=== PATIENT | male | born 1970 | race Caucasian/White ===

== ENCOUNTER 2021-08-04 07:48 | Inpatient (IN) | payer OTHER ==
[~2021-08-04] VITALS: Ht 190.5 cm; Wt 137.9 kg
--- NOTE | ~2021-08-04 | EMS ---
[address] [address] EMS Patient Care Report Name: COREY SANCHEZ Room #: 349-I ADM IN M.R.#: [id number] Admission: 08/04/21 Attend Phys: Mariaelena Colby MD Discharge: Date of : 70 Report #: [id number] THIS REPORT FOR: //name// Report Transmitted: 08/17/2021 00:22 EMS Care Summary [place], [place]/[facility] Incident [id number] @ 08/04/2021 07:14 Incident Location [address] [place] [address] Patient COREY SANCHEZ Male, 51 Years 1970 Patient Address [id number] [place] [id number] Patient History Diabetes,Gastro-Esophageal Reflux Disease (GERD),Depression,Anxiety,Anemia,Novel Coronavirus (COVID-19), Patient Allergies Morphine, Patient Medications Albuterol, Zofran, Norvasc, Prilosec, Insulin, Gabapentin, Hydralazine, Potassium, Sodium ferric gluconate, Lasix, Iron, Labetalol, Chief Complaint RESPIRATORY DISTRESS Disposition Transported No Lights/[place] Dispatch Reason Breathing Problem Transported To [facility] Narrative SCENE: ON ARRIVAL T FOUND LYING IN BED IN ROOM AT ADDRESS PROVIDED. PT IS ON [address] [address] EMS Patient Care Report Name: COREY SANCHEZ Room #: 349-I ADM IN .R.#: [id number] Admission: 08/04/21 Attend Phys: Mariaelena Colby MD Discharge: Date of : 70 Report #: [id number] 5LPM VIA NC PER NORMAL. STAFF REPORTS PT IS COVID POSITIVE AND SHE HAS BEEN UNABLE TO KEEP PT O2 SATURATION ABOVE 80 PERCENT. PT IS C/O SOB. PT LEFT FOOT AMPUTEE. PT DENIES ALL OTHER COMPLAINTS. PT SLID TO EMS STRETCHER. AMBULANCE: PT HAS CONGESTION AND WHEEZING IN THE LOWER SPANGLER. PT PLACED ON DUONEB TREATMENT EN ROUTE. PT REPORTS MILD RELIEF UPON ARRIVAL TO ED. NO OTHER CHANGES Initial Vitals @07:26P: 114,R: 18,BP: 148/74,GCS: 15,Revised Trauma: 12, @07:56P: 100,R: 18,Pain: 0/10,GCS: 15,Revised Trauma: 12, Assessments @07:27MENTAL:Person Oriented,Place Oriented,Time Oriented,Hallucinations,Event Oriented,SKIN:HEENT:Head/Face: No Abnormalities,Neck/Airway: No Abnormalities,LUNG SOUNDS:General: No Abnormalities,ABDOMEN:General: No Abnormalities,PELVIS//GI:No Abnormalities,EXTREMITIES:Left Leg: Other,Left Arm: No Abnormalities,Right Arm: No Abnormalities,Right Leg: No Abnormalities,PULSE:NEURO:No Abnormalities,@07:40MENTAL:Hallucinations,SKIN:HEENT:Head/Face: No Abnormalities,Eyes: No Abnormalities,Neck/Airway: No Abnormalities,LUNG SOUNDS:General: No Abnormalities,Left Upper: No Abnormalities,Right Upper: No Abnormalities,Left Lower: No Abnormalities,Right Lower: No Abnormalities,ABDOMEN:General: No Abnormalities,Left Upper: No Abnormalities,Right Upper: No Abnormalities,Left Lower: No Abnormalities,Right Lower: No Abnormalities,PELVIS//GI:No Abnormalities,EXTREMITIES:Left Leg: Other,Left Arm: No Abnormalities,Right Arm: No Abnormalities,Right Leg: No Abnormalities,PULSE:NEURO:No Abnormalities, Impression Acute Respiratory Distress (Dyspnea) Procedures @07:26ALS AssessmentResponse: UnchangedSucceeded@PTAOxygen FlowRate: 5 Device: Nasal Cannula (NC) Response: UnchangedSucceeded@07:30StretcherResponse: Unchanged@07:35Albuterol - 2.5 Milligrams (mg) - NebulizedResponse: Improved@07:35Atrovent - 0.5 Milligrams (mg) - NebulizedResponse: Improved Timeline DIRECTOR UNDERWRITER SALES,Oxygen FlowRate: 5 Device: Nasal Cannula (NC) Response: UnchangedSucceeded, 07:11,Call Received 07:11,Dispatch Notified 07:14,Dispatched 07:14,En Route 07:23,On Scene 07:25,At Patient [address] [address] EMS Patient Care Report Name: COREY SANCHEZ Room #: 349-I ADM IN M.R.#: [id number] Admission: 08/04/21 Attend Phys: Mariaelena Colby MD Discharge: Date of : 70 Report #: [id number] 07:26,BP: 148/74 M,PULSE: 114,RR: 18 R,SPO2: Ox,ETCO2: ,BG: ,PAIN: ,GCS: 15, 07:26,ALS Assessment,Response: UnchangedSucceeded, 07:30,Stretcher,Response: Unchanged 07:32,Depart Scene 07:35,Atrovent - 0.5 Milligrams (mg) - Nebulized,Response: Improved 07:35,Albuterol - 2.5 Milligrams (mg) - Nebulized,Response: Improved 07:42,At Destination 07:56,BP: 188/ M,PULSE: 100,RR: 18 R,SPO2: Ox,ETCO2: ,BG: ,PAIN: 0,GCS: 15, 07:57,Call Closed Disclaimer v1.1 Copyright 2020 [employer] This EMS Care Summary contains data elements from the applicable legal record (which may be displayed differently). It is designed to provide pertinent information for the following purposes: continuity of care, clinical quality, and state data reporting. The complete legal record is available to ED staff and administrators of the receiving hospital in [employer] Patient Tracker. All data is provided "as is."
[2021-08-04 09:02] LABS: BASOPHILS 0.7 % (0.0-2.0); EOSINOPHILS 0.4 % (0.0-3.0); HEMOGLOBIN 8.1 gm/dL (14.0-18.0); MCH 27.2 pg (26.0-34.0); MCHC 32.2 g/dL (28.0-37.0); MCV 84.5 fL (80.0-100.0); MONOCYTES 7.5 % (1.0-8.0); PLATELET COUNT 223 thou/uL (150-400); POLYS 82.4 % (36.0-66.0); RBC 2.96 mil/uL (4.50-6.00); RDW 14.6 % (10.5-14.5); WBC 3.6 thou/uL (4.0-11.0)
[2021-08-04 09:10] LABS: CALCIUM 8.8 mg/dL (8.5-10.1); CREATININE 1.1 mg/dL (0.7-1.3); POTASSIUM 5.4 mmol/L (3.5-5.1)
[2021-08-04 09:17] LABS: ALBUMIN 2.7 g/dL (3.4-5.0); TOTAL BILIRUBIN 0.5 mg/dL (0.2-1.0)
[2021-08-04] MEDS ORDERED: PROAIR HFA8.5 GM INH (09:31)
[2021-08-04] MEDS ORDERED: CYMBALTA60 MG PO (09:31)
[2021-08-04] MEDS ORDERED: NEURONTIN 300M300 M2 PO (09:32)
[2021-08-04] MEDS ORDERED: SLOW FE142 MG PO (09:32)
[2021-08-04] MEDS ORDERED: LANTUS SUBQ (09:40)
[2021-08-04] MEDS ORDERED: HYDRALAZINE 10M10 MG PO (09:40)
[2021-08-04] MEDS ORDERED: NORVASC10 MG PO (09:41)
[2021-08-04] MEDS ORDERED: KLOR-CON 10 ER10 MEQ PO (09:41)
[2021-08-04] MEDS ORDERED: TRANDATE 200 M200 M1 PO (09:41)
[2021-08-04] MEDS ORDERED: FUROSEMIDE 20 M20 MG PO (09:41)
[2021-08-04] MEDS ORDERED: ONDANSETRON HCL4 M2 PO (09:42)
[2021-08-04] MEDS ORDERED: OMEPRAZOLE 20 M20 M1 PO (09:42)
[2021-08-04 11:20] LABS: BE(vivo) 1.5 mmol/L (-2 to +3); HCO3 28.2 mmol/L (22.0-26.0); PCO2 56.4 mmHg (35.0-45.0); pH 7.317 (7.360-7.450); sO2 94.5 % (92.0-98.0)
[2021-08-04 13:43] VITALS: BP 170/95
--- NOTE | 2021-08-04 16:18 | EKG ---
[address] [place] [place] [address] ELECTROCARDIOGRAM REPORT Name: COREY SANCHEZ [facility] [id number] Admission: 08/04/21 Attend Phys: Discharge: Date of : 70 Report #: [id number] [facility] ED Test Date: 2021-08-04 Test Time: 07:56:54 Pat Name: COREY SANCHEZ Department: Room: Gender: M Job Honer: : 1970 Requested By: Ori Rodriguez Order Number: [id number] MD: Raghav De La Torre Measurements Intervals [place] Rate: 83 P: 55 [place]: 132 QRS: 14 QRSD: 74 T: 29 QT: 402 QTc: 473 Interpretive Statements Sinus rhythm Ventricular premature complex Low voltage No previous ECG available for comparison Electronically Signed On 08-04-2021 16:18:06 CDT by Raghav De La Torre [email or web address] <ELECTRONICALLY SIGNED> By: Raghav De La Torre MD, [facility] 08/04/21 1618 [id number] Raghav De La Torre MD, FACC /EPI
[2021-08-04 21:32] LABS: HEMATOCRIT 27.3 % (42.0-52.0); HEMOGLOBIN 8.9 gm/dL (14.0-18.0)
[2021-08-05 06:49] VITALS: BP 198/99
[2021-08-05] MEDS ORDERED: SODIUM BICARBO650 M3 PO (08:15)
[2021-08-05 08:16] VITALS: BP 156/84
[2021-08-05 11:24] VITALS: BP 120/89
[2021-08-05 11:51] LABS: HEMATOCRIT 24.2 % (42.0-52.0); MCH 27.3 pg (26.0-34.0); MCHC 32.9 g/dL (28.0-37.0); MCV 83.1 fL (80.0-100.0); RBC 2.92 mil/uL (4.50-6.00); RDW 14.8 % (10.5-14.5); WBC 4.9 thou/uL (4.0-11.0)
[2021-08-05 12:00] LABS: CALCIUM 8.7 mg/dL (8.5-10.1); POTASSIUM 4.8 mmol/L (3.5-5.1)
[2021-08-05 12:06] LABS: ALBUMIN 2.4 g/dL (3.4-5.0); DIRECT BILIRUBIN 0.1 mg/dL (<0.1-0.2); PHOSPHORUS 4.6 mg/dL (2.5-4.9); TOTAL BILIRUBIN 0.3 mg/dL (0.2-1.0); TOTAL PROTEIN 6.8 g/dL (6.4-8.2)
[2021-08-05 15:05] VITALS: BP 154/85
[2021-08-05 20:17] VITALS: BP 137/72
[2021-08-06 03:31] VITALS: BP 145/74
--- NOTE | 2021-08-06 04:42 | NUR ---
PROGRESS PT A/O X4, ANXIOUS AT TIMES. LUNGS ARE COARSE AND WHEEZY PT HAS A PRODUCTIVE COUGH. BRINGING UP SOME MOSS THICK SPUTUM SAMPLE SENT TO LAB. VSS, HAD SOME NAUSEA AND VOMITING ABOUT 300CC'S OF LIGHT BROWN EMESIS, AT START OF SHIFT BUT RESOLVED WITH A DOSE OF ZOFRAN. NOT OOB THIS SHIFT PT HAD A RECENT LBKA AND HAS NO PROSTHESIS YET SO UNABLE TO AMBULATE. VOIDING IN BATH BASIN IN PLACE OF URINAL VOIDED 500CC OF CLEAR DARK YELLOW URINE. ORDER FOR STOOL SOFTNER OBTAINED PT CANNOT REMEMBER WHEN HIS LAST BM WAS. ANTIBIOTICS ADMINITERED ORDERED. VSS CONTINUE POC.
[2021-08-06 05:04] LABS: ABSOLUTE NEUTROPHILS 3.9 thou/uL (1.4-8.2); BASOPHILS 0.3 % (0.0-2.0); HEMATOCRIT 25.9 % (42.0-52.0); HEMOGLOBIN 8.7 gm/dL (14.0-18.0); LYMPHOCYTES 6.6 % (24.0-44.0); MCH 27.9 pg (26.0-34.0); MCHC 33.5 g/dL (28.0-37.0); MCV 83.3 fL (80.0-100.0); MONOCYTES 9.1 % (1.0-8.0); PLATELET COUNT 275 thou/uL (150-400); RBC 3.11 mil/uL (4.50-6.00); RDW 14.7 % (10.5-14.5); WBC 4.7 thou/uL (4.0-11.0)
[2021-08-06 05:12] LABS: CALCIUM 8.5 mg/dL (8.5-10.1)
[2021-08-06 05:13] LABS: ALBUMIN 2.6 g/dL (3.4-5.0); DIRECT BILIRUBIN 0.1 mg/dL (<0.1-0.2); PHOSPHORUS 4.7 mg/dL (2.5-4.9); TOTAL BILIRUBIN 0.3 mg/dL (0.2-1.0); TOTAL PROTEIN 6.8 g/dL (6.4-8.2)
[2021-08-06 08:05] VITALS: BP 149/88
--- NOTE | 2021-08-06 10:24 | HC ---
[facility] [place] [address] CONSULTATION Name: COREY SANCHEZ Room #: 349-I ADM IN M.R.#: [id number] Admission: 08/04/21 Attend Phys: Mariaelena Colby MD Discharge: Date of : 70 Report #: [id number] THIS REPORT FOR: cc: Elgin Stearns MD, Srinath MD Barry,Darwin Sanz MD ~ DATE OF SERVICE: 08/05/2021 INFECTIOUS CONSULTATION ATTENDING PHYSICIAN: Dr. Colby. REASON FOR EVALUATION: COVID-19 infection, complicated by pneumonitis, respiratory failure. HISTORY OF PRESENT ILLNESS: Chart was reviewed. The patient examined. 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 He developed some dyspnea, cough, productive sputum, decreased sense of smell and taste. He was confirmed to have a COVID positive test four days prior to admission. While there, he developed more hypoxemic. He was placed on supplemental oxygen 5 liters per nasal cannula. Additional evaluation included chest x-ray which showed bilateral diffuse infiltrates, question of edema versus multifocal pneumonia. White count of 3.6. Electrolytes: Sodium of 133. ProBNP of 1299. D-dimer 4.77. Blood cultures collected on admission negative thus far. He did some ABGs this morning, pH 7.317, pCO2 of 56.4, pO2 of 79.0 on 5 liters. He is not noted to have any fever since he has been in. He is quite anxious. He was empirically started on therapy with azithromycin, ceftriaxone, remdesivir, corticosteroids. ALLERGIES: MORPHINE. CURRENT MEDICINES: Described above in addition to the antibiotics, pantoprazole, insulin, amlodipine, ipratropium, albuterol inhaler. PAST MEDICAL HISTORY: As described above, diabetes mellitus type 2, left below-knee amputation, hypertension, anemia, depression, anxiety, reflux. SOCIAL HISTORY: Nonsmoker, no ethanol, no illicit drug use. FAMILY HISTORY: Noncontributory. REVIEW OF SYSTEMS: Otherwise, unremarkable. PHYSICAL EXAMINATION: [facility] [address] [place] [address] CONSULTATION Name: COREY SANCHEZ Room #: 349-I [facility].#: [id number] Admission: 08/04/21 Attend Phys: Mariaelena Colby MD Discharge: Date of : 70 Report #: [id number] GENERAL: He is anxious, mild to moderate distress, generally lucid. VITAL SIGNS: Temperature 98.4, pulse 102, respirations 24, blood pressure 120/89. SKIN: Warm, dry, no rashes. HEENT: Normocephalic. Extraocular muscles intact. Nasal cannula in place at ____ liters. NECK: Supple. LUNGS: Few scattered coarse breath sounds. HEART: Regular. No appreciated murmur. ABDOMEN: Soft, is obese, nontender. EXTREMITIES: No cyanosis. GENITOURINARY AND RECTAL: Deferred. LABORATORY DATA: As described above, pH 7.317, pCO2 of 56.4, pO2 of 79 on 5 liters. Electrolytes: Sodium 133, potassium 5.4, chloride 96, bicarbonate is 29, anion gap of 8, BUN and creatinine 20 and 1.1, glucose of 113, albumin of 2.7. White count of 3.6, H and H 8.1 and 25.0, platelets of 223. ASSESSMENT AND PLAN: COVID-19 infection, complicated by pneumonitis, respiratory failure in the setting of diabetes mellitus, hypertension, obesity. We will continue current approach as prescribed including the directed therapy with remdesivir, corticosteroids, as well as empiric therapy, ceftriaxone, azithromycin. We will add vitamins and discuss with pharmacy ____ and remains somewhat tenuous. Monitor expectantly, oxygen therapy as required. <ELECTRONICALLY SIGNED> By: Darwin Rojas MD 08/06/21 [id number] [id number] Darwin Rojas MD /nt
[2021-08-06 11:00] VITALS: BP 141/82
--- NOTE | 2021-08-06 11:35 | NUR ---
INITIAL ASSESSMENT: FARRUKH reviewed chart and spoke with nursing and attending physician. Pt was admitted from [facility] due to COVID/hypoxia. Pt placed in Enhanced Isolation. Per chart, pt had positive COVID test 4 days prior to admission and has not received a COVID vaccination. FARRUKH placed call to pt's room. No answer. Per chart, pt is alert/orientated x 4. Pt is afebrile and on 4L of O2. Pt is on IV abx, IV steroids and Remdesivir. PT/OT evals ordered. Pt with hx DM/HTN and had left BKA on April of 2021. FARRUKH faxed clinical info to [facility] post-acute liaison for review. FARRUKH left message at [facility] to request date of pt's positive COVID test date. FARRUKH is following to assist as needed with discharge planning.
--- NOTE | 2021-08-06 14:53 | 2DMMODE ---
[facility] [place] [address] 2 D/M-MODE ECHOCARDIOGRAM Name: COREY SANCHEZ Room #: 349-I ADM IN M.R.#: [id number] Admission: 08/04/21 Attend Phys: Mariaelena Colby MD Discharge: Date of : 70 Report #: [id number] THIS REPORT FOR: cc: Elgin Stearns MD, Srinath MD Park, Jin S. MD ~ APPROVED REPORT Study performed: 08/06/2021 13:57:14 EXAM: Limited 2D, Doppler, and color-flow Echocardiogram Patient Location: Bedside Room #: 349 Status: routine BSA: 2.75 HR: 108 bpm BP: 141/82 mmHg Rhythm: Tachycardia Other Information Study Quality: Adequate Technically limited study due to morbid obesity.. Indications Abbreviated echo done on a COVID + patient. Short of breath. Question diastolic heart failure. Hx: HTN, DM LBKA. Aortic Valve AoV Peak Colin.: 1.78 m/s AO Peak Gr.: 12.71 mmHg Mitral Valve E/A Ratio: 1.1 MV Decel. Time: 227.68 ms MV E Max Colin.: 1.14 m/s MV A Colin.: 1.03 m/s MV PHT: 66.03 ms IVRT: 51.90 ms Tricuspid Valve TR Peak Colin.: 2.93 m/s RAP Estimate: 15.00 mmHg TR Peak Gr.: 34.23 mmHg PA Pressure: 49.00 mmHg [facility] [address] [place] [address] 2 D/M-MODE ECHOCARDIOGRAM Name: COREY SANCHEZ Room #: 349-I ADM IN M.R.#: [id number] Admission: 08/04/21 Attend Phys: Andrea Brown Discharge: Date of : 70 Report #: [id number] Left Ventricle The left ventricle is normal size. There is normal LV segmental wall motion. There is normal left ventricular wall thickness. Left ventricular systolic function is normal. LVEF is 55-60%. Moderate diastolic dysfunction is present (pseudonormal filling). Right Ventricle The right ventricle is normal size. The right ventricular systolic function is normal. Atria Left atrium appears mildly dilated. The right atrium size is normal. Aortic Valve Aortic valve is mildly calcified. No aortic regurgitation is present. There is no aortic valvular stenosis. Mitral Valve The mitral valve is normal in structure. Trace mitral regurgitation. Tricuspid Valve The tricuspid valve is normal in structure. Mild tricuspid regurgitation. Estimated PAP is 46mmHg. Pulmonic Valve The pulmonary valve is normal in structure. Great Vessels IVC is dilated and collapses <50% with inspiration. Pericardium There is no pericardial effusion. Right pleural effusion noted. <Conclusion> The left ventricle is normal size. There is normal left ventricular wall thickness. Left ventricular systolic function is normal. Moderate diastolic dysfunction is present (pseudonormal filling). The right ventricle is normal size. Left atrium appears mildly dilated. Aortic valve is mildly calcified. [facility] [address] [place] [address] 2 D/M-MODE ECHOCARDIOGRAM Name: COREY SANCHEZ Room #: 349-I ADM IN M.R.#: [id number] Admission: 08/04/21 Attend Phys: Andrea Brown Discharge: Date of : 70 Report #: [id number] Trace mitral regurgitation. Mild tricuspid regurgitation. Estimated PAP is 46mmHg. <ELECTRONICALLY SIGNED> By: Troy Chiang MD 08/06/21 1453 [id number] Troy Chiang MD /INF
[2021-08-06 16:28] VITALS: BP 148/91
[2021-08-06 20:22] VITALS: BP 153/79
[2021-08-07 02:45] VITALS: BP 150/78
--- NOTE | 2021-08-07 04:52 | NUR ---
Assumed pt's care beginning of this shift. Alert and oriented. Remained on 4L O2 this shift. Meds given per emar. Pt continuee to sleep well this shift. Pt's mother called beginning of shift for update, and was updated. Fall precaution in place. PRN xanax given at HS per pt's request. Voiding via urinal. LFA IV SL. Cdiff result pending. Nursing to continue to monitor.
[2021-08-07 07:21] VITALS: BP 153/87
[2021-08-07 09:51] LABS: ABSOLUTE NEUTROPHILS 2.9 thou/uL (1.4-8.2); BASOPHILS 0.6 % (0.0-2.0); HEMATOCRIT 25.3 % (42.0-52.0); HEMOGLOBIN 8.1 gm/dL (14.0-18.0); LYMPHOCYTES 12.7 % (24.0-44.0); MCHC 32.1 g/dL (28.0-37.0); MCV 84.1 fL (80.0-100.0); MONOCYTES 11.2 % (1.0-8.0); PLATELET COUNT 290 thou/uL (150-400); POLYS 75.5 % (36.0-66.0); RBC 3.01 mil/uL (4.50-6.00); RDW 14.7 % (10.5-14.5); WBC 3.8 thou/uL (4.0-11.0)
[2021-08-07 10:11] LABS: ANION GAP 2 mmol/L (7-16); BUN 18 mg/dL (7-18); CALCIUM 8.6 mg/dL (8.5-10.1); CHLORIDE 103 mmol/L (98-107); CO2 34 mmol/L (21-32); CREATININE 0.9 mg/dL (0.7-1.3); GLUCOSE 168 mg/dL (74-106); POTASSIUM 4.4 mmol/L (3.5-5.1); SODIUM 139 mmol/L (136-145)
[2021-08-07 10:19] LABS: ALBUMIN 2.4 g/dL (3.4-5.0); DIRECT BILIRUBIN < 0.1 mg/dL (<0.1-0.2); PHOSPHORUS 4.1 mg/dL (2.6-4.7); SGOT 22 U/L (15-37); SGPT 20 U/L (16-63); TOTAL BILIRUBIN 0.2 mg/dL (0.2-1.0); TOTAL PROTEIN 7.3 g/dL (6.4-8.2)
[2021-08-07 10:27] LABS: % SATURATION 32 % (20-39); IRON 50 ug/dL (65-175); TIBC 155 ug/dL (250-450)
[2021-08-07 11:15] VITALS: BP 146/89
--- NOTE | 2021-08-07 12:48 | NUR ---
SW reviewed chart and spoke with nursing and attending physician. Pt remains in Enhanced Isolation due to COVID. Pt is afebrile and on 2-4L of O2. Pt is on IV abx, IV lasix and IV steroids. Remdesivir has been started. Discharge back to [facility] is anticipated in 1-2 days. FARRUKH placed call to pt's room. No answer. FARRUKH left voice message for pt's mother, Anjali ([phone]), to provide update and confirm discharge plan. FARRUKH updated [facility] post-acute liaison. FARRUKH is following to assist as needed with discharge planning.
[2021-08-07 15:42] VITALS: BP 148/87
[2021-08-07 19:30] VITALS: BP 154/93
[2021-08-08 04:30] VITALS: BP 172/93
[2021-08-08 04:52] LABS: ABSOLUTE NEUTROPHILS 2.9 thou/uL (1.4-8.2); BASOPHILS 0.2 % (0.0-2.0); HEMATOCRIT 23.7 % (42.0-52.0); LYMPHOCYTES 14.4 % (24.0-44.0); MCH 28.1 pg (26.0-34.0); MCHC 33.8 g/dL (28.0-37.0); MCV 83.1 fL (80.0-100.0); MONOCYTES 11.4 % (1.0-8.0); PLATELET COUNT 272 thou/uL (150-400); RBC 2.86 mil/uL (4.50-6.00); RDW 14.8 % (10.5-14.5); WBC 3.9 thou/uL (4.0-11.0)
[2021-08-08 05:25] LABS: ANION GAP 7 mmol/L (7-16); BUN 22 mg/dL (7-18); CALCIUM 8.6 mg/dL (8.5-10.1); CHLORIDE 99 mmol/L (98-107); CO2 32 mmol/L (21-32); CREATININE 0.9 mg/dL (0.7-1.3); GLUCOSE 165 mg/dL (74-106); POTASSIUM 4.2 mmol/L (3.5-5.1); SODIUM 138 mmol/L (136-145)
--- NOTE | 2021-08-08 06:27 | NUR ---
PT MAKING SLOW PROGRESS TOWARDS GOALS. ON O2 AT 2L PER NC OVERNIGHT. LUNGS DIMINISHED WITH OCCASIONAL AREAS OF MILD/FAINT WHEEZES. OCCASIONAL NONPRODUCTIVE COUGH NOTED. SEE CHARTING.
[2021-08-08 07:17] VITALS: BP 154/89
[2021-08-08 08:11] LABS: ALBUMIN 2.2 g/dL (3.4-5.0); DIRECT BILIRUBIN < 0.1 mg/dL (<0.1-0.2); PHOSPHORUS 3.2 mg/dL (2.6-4.7); SGOT 27 U/L (15-37); SGPT 22 U/L (16-63); TOTAL BILIRUBIN 0.1 mg/dL (0.2-1.0); TOTAL PROTEIN 7.1 g/dL (6.4-8.2)
--- NOTE | 2021-08-08 09:14 | HC ---
[facility] [place] [address] CONSULTATION Name: COREY SANCHEZ Room #: 349-I ADM IN M.R.#: [id number] Admission: 08/04/21 Attend Phys: Mariaelena Colby MD Discharge: Date of : 70 Report #: [id number] THIS REPORT FOR: cc: Elgin Stearns MD, Srinath MD Althoff,Kuldeep Barrera MD ~ DATE OF SERVICE: 08/05/2021 CHIEF COMPLAINT: Left BKA site. HISTORY OF PRESENT ILLNESS: This is a 51-year-old male patient admitted to the hospital with shortness of breath since Wednesday. He was diagnosed with COVID. He has had decreasing oxygen saturations. He has had a prior left above-knee amputation, some areas have not healed. I have been asked to see him with regard to wound care. The patient denies much pain in that area. PAST MEDICAL HISTORY: Positive for diabetes mellitus, hypertension, previous BKA, possible congestive heart failure, and morbid obesity. SOCIAL HISTORY: Negative for current alcohol or tobacco use. FAMILY HISTORY: Noncontributory. MEDICATIONS: Include Cymbalta, ProAir, Slow Fe, Neurontin, Apresoline, Trendate, furosemide, Norvasc, Klor-Con, omeprazole, Zofran. ALLERGIES: MORPHINE. REVIEW OF SYSTEMS: CONSTITUTIONAL: The patient denies fever, chills or weight loss. NEUROLOGICAL: The patient denies focal weakness, numbness or tingling. EYES: The patient denies any visual changes, redness or drainage. ENT: The patient denies earache, nasal drainage, sore throat. CARDIOVASCULAR: The patient denies chest pain, palpitation, diaphoresis. PULMONARY: The patient does complain of shortness of breath and cough. GASTROINTESTINAL: Denies nausea, vomiting, diarrhea or abdominal pain. ORTHOPEDIC: The patient notes his left BKA, he states he has been treated with topical Betadine. Others systems in a 14-point review of systems are negative. PHYSICAL EXAMINATION: VITAL SIGNS: At this time include temperature 36.6, pulse 107, respiration of 20, blood pressure 134/85. GENERAL: This is a somewhat chronically ill-appearing male. The patient appears to be in minimal distress. [place] [id number] CONSULTATION Name: COREY SANCHEZ Room #: 349-I ADM IN M.R.#: [id number] Admission: 08/04/21 Attend Phys: Mariaelena Colby MD Discharge: Date of : 70 Report #: [id number] HEENT: Head normocephalic. Nose and throat are clear. LUNGS: Diminished. HEART: Regular rhythm. ABDOMEN: Soft, obese, nontender. EXTREMITIES: Left BKA shows areas of dry eschar, some of which peels away revealing intact epithelium beneath, few areas remain adherent. There appears to be a tattoo on the lateral leg. There does not appear to be any tissue loss or other problems noted here. CLINICAL IMPRESSION: 1. A surgical incision left BKA with multiple superficial residual ulcerations. 2. COVID with acute hypoxic respiratory failure. 3. Type 2 diabetes mellitus. 4. Hypertension. 5. Morbid obesity. 6. Moderate protein calorie malnutrition, albumin 2.8. RECOMMENDATIONS: We will paint the BKA incision sites with Betadine and otherwise leave open to air. Active medical management of his COVID infection, diabetes, hypertension. Appreciate being asked to see him in consultation. <ELECTRONICALLY SIGNED> By: Kuldeep Rodrigez MD 08/08/21 0914 1730 0035 Kuldeep Rodrigez MD /nt
[2021-08-08 11:13] VITALS: BP 149/85
--- NOTE | 2021-08-08 14:53 | NUR ---
FARRUKH reviewed chart and spoke with nursing and attending physician. Pt remains in Enhanced Isolation. Pt is afebrile and on 2L of O2. Pt is on IV abx, IV steroids and IV lasix. No weekend discharge planned. FARRUKH discussed case with [facility] reimbursement liaison. Consult to be ordered today. FARRUKH placed call to pt's room. No answer. FARRUKH spoke with pt's mother, Anjali, via phone. Introduced role of FARRUKH. Pt is alert/orientated x 4. Pt has lived with his mother for the past 4 years following amputation of several toes. Pt is unemployed and does not have any income. Pt was admitted to [facility] on May 16, 2021 and had toe amputation on May 21. Pt was discharged to [facility], and then was transferred to [facility] after having positive COVID test on 07/31. Pt's mother states he has been receiving some therapy at the facility. Pt had an appt to be measured by [facility] for prosthesis, but that appt was cancelled when pt was transferred to [facility]. FARRUKH discussed possible admission to inpt acute rehab if pt meets criteria. SW provided options for inpt acute rehab facilities. Pt and family lives in [place]. Pt's mother would like for pt to decide on facility. Eventual discharge plans discussed. Pt's mother asked what pt will need when discharged from a facility. FARRUKH explained that discharge needs will have to be determined once pt gets a prosthesis and is able to work with therapy. Pt's mother verbalized understanding. FARRUKH will continue to reach pt to discuss discharge plans. FARRUKH is following to assist as needed with discharge planning.
[2021-08-08 15:08] VITALS: BP 144/84
--- NOTE | 2021-08-08 17:56 | NUR ---
assumed care of pt at 0700. pt aox4 no acute distress. 2L NC. increased diuretics today. swelling showing improvement. over 7000cc urinary output this shift. up with physical therapy and sliding board. no events on telemetry. wcm.
[2021-08-08 19:23] VITALS: BP 156/90
[2021-08-09 04:48] VITALS: BP 171/76
--- NOTE | 2021-08-09 05:29 | NUR ---
PT MAKING SLOW PROGRESS TOWARDS GOALS. JUST OVER 4L UOP NOTED. PT ON O2 AT 2L PER NC OVERNIGHT. NOTED O2 SAT 99% JUST PRIOR TO PT BE WOKEN UP FOR REASSESSMENT. LUNGS DIMINISHED THROUGHOUT.
[2021-08-09 05:49] LABS: HEMATOCRIT 26.7 % (42.0-52.0); HEMOGLOBIN 8.7 gm/dL (14.0-18.0); MCHC 32.7 g/dL (28.0-37.0); MCV 82.8 fL (80.0-100.0); RBC 3.23 mil/uL (4.50-6.00); RDW 14.7 % (10.5-14.5); WBC 4.9 thou/uL (4.0-11.0)
[2021-08-09 05:52] LABS: PLATELET COUNT 354 thou/uL (150-400)
[2021-08-09 06:01] LABS: ALBUMIN 2.6 g/dL (3.4-5.0); ANION GAP 6 mmol/L (7-16); BUN 26 mg/dL (7-18); CALCIUM 9.1 mg/dL (8.5-10.1); CHLORIDE 100 mmol/L (98-107); CO2 34 mmol/L (21-32); CREATININE 0.9 mg/dL (0.7-1.3); DIRECT BILIRUBIN < 0.1 mg/dL (<0.1-0.2); GLUCOSE 209 mg/dL (74-106); PHOSPHORUS 3.6 mg/dL (2.5-4.9); POTASSIUM 4.3 mmol/L (3.5-5.1); SGOT 24 U/L (15-37); SGPT 20 U/L (30-65); SODIUM 140 mmol/L (136-145); TOTAL BILIRUBIN 0.2 mg/dL (0.2-1.0); TOTAL PROTEIN 7.2 g/dL (6.4-8.2)
[2021-08-09 06:54] LABS: ABSOLUTE NEUTROPHILS 4.1 thou/uL (1.4-8.2); PLATELET ESTIMATE NORMAL
[2021-08-09 07:20] VITALS: BP 147/81
[2021-08-09 11:08] VITALS: BP 153/79
[2021-08-09 15:06] VITALS: BP 145/76
--- NOTE | 2021-08-09 19:23 | NUR ---
RN ASSUMED PT'S CARE AT 0700-1900PM, PT IS A&OX4, PT IS OFF O2 AND HE IS ON ROOM AIR AT AFTERNOON, PT DENIES SOB AND PAIN , PT'S VS AND O2SAT ARE STABLE AT DAY SHIFT, PT IS CONTINUING IV ABX AND TREAT COVID MEDICATION.
[2021-08-09 21:04] VITALS: BP 128/63
[2021-08-10 05:13] VITALS: BP 127/67
--- NOTE | 2021-08-10 05:38 | NUR ---
PT MAKING PROGRESS TOWARDS GOALS. ON ROOM AIR THROUGHOUT THE NIGHT. OCCASIONAL COUGH NOTED. NO SOA NOTED WHILE AT REST. 95-99% SPO2 WHEN SPOT CHECKED THROUGHOUT THE NIGHT.
[2021-08-10 06:57] VITALS: BP 150/79
[2021-08-10 11:20] LABS: ABSOLUTE NEUTROPHILS 5.2 thou/uL (1.4-8.2); BASOPHILS 0.4 % (0.0-2.0); EOSINOPHILS 0.3 % (0.0-3.0); HEMATOCRIT 31.1 % (42.0-52.0); HEMOGLOBIN 10.3 gm/dL (14.0-18.0); LYMPHOCYTES 13.4 % (24.0-44.0); MCH 27.3 pg (26.0-34.0); MCHC 33.2 g/dL (28.0-37.0); MCV 82.1 fL (80.0-100.0); MONOCYTES 7.1 % (1.0-8.0); PLATELET COUNT 418 thou/uL (150-400); POLYS 78.8 % (36.0-66.0); RBC 3.78 mil/uL (4.50-6.00); RDW 14.5 % (10.5-14.5); WBC 6.7 thou/uL (4.0-11.0)
[2021-08-10 11:22] VITALS: BP 127/75
[2021-08-10 11:44] LABS: ALBUMIN 2.7 g/dL (3.4-5.0); ANION GAP 5 mmol/L (7-16); BUN 33 mg/dL (7-18); CHLORIDE 96 mmol/L (98-107); CO2 37 mmol/L (21-32); DIRECT BILIRUBIN < 0.1 mg/dL (<0.1-0.2); GLUCOSE 243 mg/dL (74-106); PHOSPHORUS 3.6 mg/dL (2.5-4.9); POTASSIUM 3.5 mmol/L (3.5-5.1); SGOT 32 U/L (15-37); SGPT 41 U/L (30-65); SODIUM 138 mmol/L (136-145); TOTAL BILIRUBIN 0.2 mg/dL (0.2-1.0); TOTAL PROTEIN 7.3 g/dL (6.4-8.2)
--- NOTE | 2021-08-10 14:01 | NUR ---
Pt up in bed, moves side to side per self, a and o, on RA, goal today was to get rest r/t he did not sleep well last night. Pt labs were drawn my nurse, carla, lab sent to lab, doctor informed of results, call light with in reach, waching TV no concerns at this time.
[2021-08-10 15:25] VITALS: BP 141/72
[2021-08-10 19:41] VITALS: BP 137/75
[2021-08-11 03:42] VITALS: BP 152/72
[2021-08-11 04:54] LABS: ABSOLUTE NEUTROPHILS 5.7 thou/uL (1.4-8.2); BASOPHILS 0.2 % (0.0-2.0); HEMATOCRIT 31.3 % (42.0-52.0); HEMOGLOBIN 10.4 gm/dL (14.0-18.0); LYMPHOCYTES 7.5 % (24.0-44.0); MCH 27.1 pg (26.0-34.0); MCHC 33.1 g/dL (28.0-37.0); MONOCYTES 5.9 % (1.0-8.0); PLATELET COUNT 410 thou/uL (150-400); POLYS 86.4 % (36.0-66.0); RBC 3.82 mil/uL (4.50-6.00); RDW 14.8 % (10.5-14.5); WBC 6.6 thou/uL (4.0-11.0)
--- NOTE | 2021-08-11 05:13 | NUR ---
room air desat study tonight. he has maintained o2 sats in the med 90's. encouraged to take low sodium snacks and to watch his water intake. he has a flat affect and becomes withdrawn when education offered. blood pressure within normal limits. no discharge concerns voiced.
[2021-08-11 05:28] LABS: ALBUMIN 2.7 g/dL (3.4-5.0); ANION GAP 6 mmol/L (7-16); BUN 35 mg/dL (7-18); CALCIUM 8.9 mg/dL (8.5-10.1); CHLORIDE 96 mmol/L (98-107); CO2 34 mmol/L (21-32); DIRECT BILIRUBIN < 0.1 mg/dL (<0.1-0.2); GLUCOSE 253 mg/dL (74-106); PHOSPHORUS 4.1 mg/dL (2.5-4.9); POTASSIUM 3.7 mmol/L (3.5-5.1); SGOT 22 U/L (15-37); SGPT 39 U/L (30-65); SODIUM 136 mmol/L (136-145); TOTAL BILIRUBIN 0.2 mg/dL (0.2-1.0); TOTAL PROTEIN 7.3 g/dL (6.4-8.2)
[2021-08-11 07:10] VITALS: BP 158/90
[2021-08-11 11:46] VITALS: BP 125/76
--- NOTE | 2021-08-11 14:11 | NUR ---
FARRUKH reviewed chart and spoke with nursing and attending physician. Pt remains in Enhanced Isolation due to COVID. Pt is afebrile and not requiring O2. Pt is progressing towards goals for discharge. [facility] has evaluated pt and can accept pt pending insurance auth. FARRUKH spoke with pt via phone to discuss inpt acute rehab options. Pt states that he would like referrals to be sent to [facility] and [facility]. SW explained process for referral, acceptance and insurance auth. Pt verbalized understanding. FARRUKH faxed referral to [facility] and notified liaison, Sejal, of new referral. FARRUKH also faxed to [facility] inpt acute rehab and spoke with Dennis in intake. Both facilities to review referral. FARRUKH updated rehab spec. FARRUKH is following to assist as needed with discharge planning.
[2021-08-11 15:10] VITALS: BP 139/76
--- NOTE | 2021-08-11 16:09 | NUR ---
PT IS PLEASENT AND ALERT AND ORIENTED X 4. PT ON RA, BUT IS SOA WITH MOVEMENT. PT HAS L BKA AND IS WEAK. PT IS WORKIN WITH PT/OT AND WAITING ON REHAB PLACEMENT. PT ON FALL PRECAUTIONS AND IS COMFORTABLE AT BEDSIDE. PT DENIES ANY NEEDS AT THE MOMENT, WILL CONTINUE TO MONITOR.
[2021-08-11 20:27] VITALS: BP 127/73
[2021-08-12 04:58] VITALS: BP 146/70
--- NOTE | 2021-08-12 06:19 | NUR ---
Patient progressing towards outcome goals. Oxygenation optimal on room air. Vital signs and rhythm stable. Blood sugars elevated sliding scale insulin increased to high per protocol.
[2021-08-12 07:12] VITALS: BP 146/81
[2021-08-12 11:17] VITALS: BP 166/86
--- NOTE | 2021-08-12 12:36 | NUR ---
PT ALERT AND ORIENTED X4, DENIES ANY PAIN. PT IS PROGRESSING TOWARDS POC. PT HAS BEEN WORKING WITH PT/OT. ANTICIPATING FOR D/C TOP REHAB SOON. CONTINUE TO BE IN ENHANCED PRECAUTIONS. DENIES ANY NEEDS ANNE.
[2021-08-12 15:20] VITALS: BP 136/81
--- NOTE | 2021-08-12 15:36 | NUR ---
FARRUKH reviewed chart and spoke with nursing and attending physician. Pt remains in Enhanced Isolation due to COVID. Pt is afebrile and not requiring O2. FARRUKH spoke with pt via phone to provide update and discuss options for inpt acute rehab. FARRUKH explained that [facility] is only accepting internal pts at this time, AND would require 20 days of isolation prior to consideration. [facility] is also not willing to consider pt until 20 days of isolation. FARRUKH discussed option for [facility] and also remaining at [facility] for acute re[place]. FARRUKH explained that pt would remain in his current room until he can come out of isolation. Pt verbalized understanding and is agreeable with referral to [facility]. Pt asked if he could start rehab here and then transfer or d/c to another acute rehab facility once out of isolation. FARRUKH left voice message on [place] help desk line to see if this would be possible. FARRUKH faxed referral to [facility]. Confirmed info was received with liaison, who is reviewing and will need to speak with pt regarding discharge plan. FARRUKH requested COVID test result from [facility] post acute liaison. FARRUKH also asked if [facility] can accept pt back after rehab stay, if needed. Awaiting info at this time. FARRUKH placed call to pt's room. No answer. FARRUKH left voice message on pt's cell phone: [phone]. FARRUKH is following to assist as needed with discharge planning.
[2021-08-12 19:05] VITALS: BP 122/69
--- NOTE | 2021-08-13 02:53 | NUR ---
PROGRESS PT A/O X4, UP TO W/C WITH SLIDEBOARD AND SBA. STAYED IN CHAIR ALL DAY AND TRANSFERRED SELF BACK TO BED WITH SLIDEBOARD. VSS. LUNGS DIMINISHED BILATERAL NO COUGH NOTED, PT DENIES SOB. VOIDING LARGE AMOUNTS OF CLEAR YELLOW URINE FLUID RESTRICTION CONTINUES. LEFT STUMP WITH HEALING INCISION 3 SCABBED AREAS NOTED WITH NO DRAINAGE AND NO S/S OF INFECTION. PLAN IS TO BE DISCHARGED TO REHAB WHEN BED IS AVAILABLE.
[2021-08-13 03:34] VITALS: BP 136/67
[2021-08-13 07:13] VITALS: BP 157/87
--- NOTE | 2021-08-13 12:20 | NUR ---
[facility] updated and clinical faxed. They have spoken with the pt via phone to discuss his dc goal to return home with his mom. Their covid team is reviewing and they are checking their bed availability. [facility] is following as well should they not be able to accept. Pt is likely dc ready today if [facility] can accept. Discussed with the care team.
--- NOTE | 2021-08-13 13:02 | NUR ---
PT IS PROGRESSING TOWARDS CARE. UP IN THE WHEELCHAIR ANNE. CONTINUE TO BE ON ROOM AIR, SOME SOB WITH EXERTION. PT HAS BEEN WORKING WITH PT/OT. ENHANCED PRECAUTION IN PLACE. ANTICIPATING FOR D/C TO REHAB SOON.
[2021-08-13 16:15] VITALS: BP 133/82
[2021-08-13 19:17] VITALS: BP 134/79
[2021-08-13 20:27] LABS: HEMATOCRIT 33.1 % (42.0-52.0); HEMOGLOBIN 11.1 gm/dL (14.0-18.0); MCH 27.3 pg (26.0-34.0); MCHC 33.6 g/dL (28.0-37.0); MCV 81.1 fL (80.0-100.0); RBC 4.09 mil/uL (4.50-6.00); RDW 15.2 % (10.5-14.5); WBC 10.4 thou/uL (4.0-11.0)
[2021-08-13 20:53] LABS: CALCIUM 8.8 mg/dL (8.5-10.1); CREATININE 1.4 mg/dL (0.7-1.3); MAGNESIUM 1.5 mg/dL (1.8-2.4); POTASSIUM 4.1 mmol/L (3.5-5.1)
--- NOTE | 2021-08-14 02:29 | NUR ---
PROGRESS PT PROGRESSING LUNGS CLEAR ON ROOM AIR ACCUCHECKS AND SSI CONTINUE. VOIDING QS. COVID TREATMENT COMPLETED. WAITING ON APPROVAL TO TRANSFER TO REHAB. SPENT THE DAY UP IN W/C AND TRANSFERRED SELF TO BED USING SLIDE BOARD AND SBA. VSS TELEMETRY INTACT VOIDING QS, FLUID RESTRICTION CONTINUES. CONTINUE POC.
[2021-08-14 03:30] VITALS: BP 142/78
[2021-08-14 05:56] LABS: HEMATOCRIT 31.2 % (42.0-52.0); HEMOGLOBIN 10.5 gm/dL (14.0-18.0); MCH 27.4 pg (26.0-34.0); MCHC 33.7 g/dL (28.0-37.0); MCV 81.4 fL (80.0-100.0); RBC 3.84 mil/uL (4.50-6.00); RDW 15.3 % (10.5-14.5); WBC 10.1 thou/uL (4.0-11.0)
[2021-08-14 06:12] LABS: CALCIUM 8.9 mg/dL (8.5-10.1); CREATININE 1.2 mg/dL (0.7-1.3); POTASSIUM 3.7 mmol/L (3.5-5.1)
[2021-08-14 07:40] VITALS: BP 138/68
--- NOTE | 2021-08-14 13:48 | NUR ---
FARRUKH reviewed chart and spoke with nursing and attending physician. Pt remains in Enhanced Isolation due to COVID. Pt is afebrile and not requiring O2. FARRUKH discussed case with [facility] liaison, who states they are able to accept pt. They will have an isolation room available tomorrow. FARRUKH left voice message for pt on his cell phone: [phone] to provide update. FARRUKH is following to assist as needed with discharge planning.
[2021-08-14 15:28] VITALS: BP 130/80
[2021-08-14 20:15] VITALS: BP 121/64
[2021-08-15 03:55] VITALS: BP 124/71
--- NOTE | 2021-08-15 05:06 | NUR ---
Pt. stated he slept some during the night. Tolerating room air well with no respiratory distress. Cont. on enhanced precaution , afebrile. Voiding per urinal. Denies any pain. Anticipating DC today . Making some progress towards discharge goals.
[2021-08-15 07:00] VITALS: BP 121/57
--- NOTE | 2021-08-15 13:19 | NUR ---
FARRUKH reviewed chart and spoke with nursing and attending physician. Pt remains in Enhanced Isolation due to COVID. Pt is afebrile and not requiring O2. Pt is medically stable for discharge to [facility]. FARRUKH contacted [facility], who states they do not have an isolation bed for pt today and they do not do weekend admissions. Discharge anticipated for Wednesday, 08/15. FARRUKH requested [facility] to notify pt. FARRUKH also spoke with pt via phone to provide update and discussed discharge plan. Pt is aware and verbalized understanding. SW updated attending physician and pt's nurse. FARRUKH is following to assist as needed with discharge planning.
[2021-08-15 16:08] VITALS: BP 136/76
[2021-08-15 19:19] VITALS: BP 115/54
[2021-08-16 02:34] VITALS: BP 139/75
[2021-08-16 05:14] LABS: HEMATOCRIT 28.1 % (42.0-52.0); HEMOGLOBIN 9.3 gm/dL (14.0-18.0); MCH 27.4 pg (26.0-34.0); MCHC 33.2 g/dL (28.0-37.0); MCV 82.7 fL (80.0-100.0); RBC 3.4 mil/uL (4.50-6.00); RDW 15.5 % (10.5-14.5); WBC 8.5 thou/uL (4.0-11.0)
[2021-08-16 05:18] LABS: CALCIUM 8.7 mg/dL (8.5-10.1); CREATININE 1.4 mg/dL (0.7-1.3); POTASSIUM 4.1 mmol/L (3.5-5.1)
--- NOTE | 2021-08-16 06:23 | NUR ---
FOLLOWING POC FOR COVID. PT TO BSC USING SLIDING BOARD. VSS OVERNIGHT. PT IN [facility] AND IS READY TO DC TO [facility]. NO OTHER COMPLIANTS OVERNIGHT.
[2021-08-16 07:12] VITALS: BP 146/81
--- NOTE | 2021-08-16 15:13 | NUR ---
assumed care of pt at 0700. pt aox4 no acute distress. room air. voicing no concerns. up to bsc w/ sliding board. bathed with staff assistance. waiting on rehab bed - anticipate d/c wednesday.
[2021-08-16 15:20] VITALS: BP 127/76
[2021-08-16 20:45] VITALS: BP 137/81
--- NOTE | 2021-08-17 06:05 | NUR ---
VSS OVERNIGHT. PT IS EDUCATED ON HIS MEDICATIONS. ACCU CHECK AT 2100 WAS 174 WITH 10U GIVEN. PT CAN SLIDE HIMSELF TO BSC. ISOLATION AND FALL PRECAUTIONS IN PLACE.
[2021-08-17 06:22] VITALS: BP 132/78
[2021-08-17 07:14] VITALS: BP 128/62
[2021-08-17 08:00] VITALS: BP 112/72
[2021-08-17 15:17] VITALS: BP 112/72
--- NOTE | 2021-08-17 18:05 | NUR ---
RN ASSUMED PT'S CARE AT 0700AM, PT IS A&OX4, PT IS CONTINUING COVID ISOLATION, PT IS ON ROOM AIR, PT'S VS AND O2SAT ARE STABLE, PT DENIES SOB AND PAIN AT DAY SHIFT, PT GETS UP TO W/C WITH ASSIST, PT MAY DC TO REHAB FACILITY TOMORROW.
[2021-08-17 19:25] VITALS: BP 115/64
[2021-08-18 04:35] VITALS: BP 130/68
[2021-08-18 07:07] VITALS: BP 136/79
--- NOTE | 2021-08-18 07:48 | NUR ---
PT READY TO DC TO [facility]. HELPING PT SET SHORT TERM GOAL AFTER DC. PT UP TO BSC WITH SLIDER BOARD AND HAD A BM, ALSO TOOK SHOWER YESTERDAY. VSS. AFEBRILE. FALL AND ISOLATION PRECAUTIONS.
--- NOTE | 2021-08-18 15:20 | NUR ---
FARRUKH reviewed chart and spoke with nursing and attending physician. Pt remains in Enhanced Isolation due to COVID. Pt is medically stable for discharge to [facility]. FARRUKH discussed with [facility], who states they do not have an isolation bed today. Pt will be at 20 days post positive test tomorrow and will be able to be admitted to their regular unit. FARRUKH spoke with pt via phone to provide update. Pt is aware and verbalized understanding. SW updated attending physician. SW is following to assist as needed with discharge planning.
[2021-08-18 15:25] VITALS: BP 140/77
[2021-08-18 19:17] VITALS: BP 122/70
--- NOTE | 2021-08-18 19:40 | NUR ---
RN ASSUMED PT'S CARE AT 0700-1900PM. PT IS A&OX4, PT IS ROOM AIR , PT'S VS ARE STABLE, PT DENIES SOB AND PAIN AT DAY SHIFT, PT HAS PT/OT TO WORK WITH HIM, PT WILL DC TO REHAB FACILITY TOMORROW.
--- NOTE | 2021-08-18 21:31 | NUR ---
PT SITTING UP IN BED. ON ROOM AIR. LUNGS CRACKLES IN BASES DIMINISHED MID, AFTER BREATHING TREATMENT, CRACKLES BASES AND CLEAR MID AND UPPER. PALE SKIN TONE, OBESE, LBKA. R BLE EDEMA. PT DECLINED HS SNACK. PT PLANS ON DC IN AM, STATES HE HAS NOT SEEN HIS FAMILY IN 90 DAYS.
[2021-08-19 04:30] VITALS: BP 119/68
[2021-08-19 06:56] VITALS: BP 139/89
[2021-08-19 08:52] VITALS: BP 92/56
--- NOTE | 2021-08-19 11:59 | NUR ---
THIS RN SPOKE TO DR. VIDAL ABOUT RED AND WARM AREA ON LEFT LOWER QUADRANT IN AREA LOVENOX SHOT WAS ADMINISTERED. DR. VIDAL ADVISED TO KEEP AN EYE ON IT AT NEW FACILITY AND HAVE THEIR DR LOOK AT IT IF IT GETS WORSE. WILL REPORT THIS TO RN AT NEW FACILITY AND WILL CONTINUE TO MONITOR.
[2021-08-19] MEDS ORDERED: METOPROLOL SUCC25 M1 PO (12:15)
[2021-08-19] MEDS ORDERED: TORSEMIDE20 MG PO (12:15)
--- NOTE | 2021-08-19 13:12 | NUR ---
DISCHARGE NOTE: FARRUKH reviewed chart and spoke with nursing and attending physician. Pt is medically stable for discharge to [facility] today. FARRUKH faxed updated info to [facility] liaison for review. FARRUKH spoke with Michelle in intake who states they are able to accept pt today. Wheelchair van transportation scheduled for 1400 per [facility] arrangements. FARRUKH has left two voice messages for pt to provide update and to notify of discharge plan. FARRUKH updated nursing and requested chart copy. Nursing to call report. No additional FARRUKH needs identified at this time, but is available to assist should needs arise.
--- NOTE | 2021-08-19 15:13 | NUR ---
THIS RN DISCHARGED PT AT 1435 WITH TRANSPORT AND WHEELCHAIR. PT HEADING TO [facility] FOR REHAB. GAVE REPORT TO JOHNNA BEFORE DISCHARGE AND GAVE RETURN NUMBER IF ANY QUESTIONS ARISE. PT EDUCATION PROVIDED ABOUT DISCHARGE, INCLUDING NEW MEDICATIONS. PT SIGNED UNDERSTANDING OF DISCHARGE INFORMATION AND IS IN PT CHART. PT LEFT WITH ALL BELONGINGS.
[2021-08-19 15:20] VITALS: BP 92/56
== END 2021-08-19 14:35 | DRG 177 ==
LOC: ER 07:48 → EROBS 10:13 → 3W 10:13
PROVIDERS: Emergency Medicine; Hospitalist; Internal Medicine; Internal Medicine Pulmonary Disease; Specialist; ADMIT Hospitalist; ATTEND Hospitalist
PROC: XW033E5 Introduction of Remdesivir Anti-infective into Peripheral Vein, Percutaneous Approach, New Technology Group 5 (ICD-10-PCS; principal; 2021-08-04)
DX: U07.1 COVID-19 (principal); J12.82 Pneumonia due to coronavirus disease 2019; J96.21 Acute and chronic respiratory failure with hypoxia; J96.22 Acute and chronic respiratory failure with hypercapnia; E43 Unspecified severe protein-calorie malnutrition; I50.33 Acute on chronic diastolic (congestive) heart failure; E87.1 Hypo-osmolality and hyponatremia; E11.9 Type 2 diabetes mellitus without complications; F32.9 Major depressive disorder, single episode, unspecified; F41.9 Anxiety disorder, unspecified; E66.01 Morbid (severe) obesity due to excess calories; E87.6 Hypokalemia; I11.0 Hypertensive heart disease with heart failure; E87.8 Other disorders of electrolyte and fluid balance, not elsewhere classified; F41.1 Generalized anxiety disorder; R53.81 Other malaise; T87.9 Unspecified complications of amputation stump; Z68.38 Body mass index [BMI] 38.0-38.9, adult; Z89.512 Acquired absence of left leg below knee; Z83.3 Family history of diabetes mellitus; Y83.5 Amputation of limb(s) as the cause of abnormal reaction of the patient, or of later complication, without mention of misadventure at the time of the procedure
CPT/HCPCS: 10879